=== PATIENT | female | born 1985 | race Caucasian/White ===

== ENCOUNTER 2018-02-11 22:02 | Emergency (ER) | payer MEDICAID ==
[~2018-02-11] VITALS: Ht 154.9 cm; Wt 63.0 kg
[2018-02-11 22:05] VITALS: BP 123/85
[2018-02-11] MEDS ORDERED: ondansetron 4mg rapidly disintigrating tab PO ONE (22:15)
[2018-02-11] MEDS ORDERED: HYDROcodone/acetaminophen 5mg/325mg tablet PO ONE (22:15)
[2018-02-11] MEDS ORDERED: ONDA4TAB9 PO (22:43)
[2018-02-11] MEDS ORDERED: HYDR-3965 PO (22:43)
== END 2018-02-11 23:32 | disposition home or self-care (01) ==
LOC: ER 22:03
DX: S93.401A Sprain of unspecified ligament of right ankle, initial encounter (principal); Z88.6 Allergy status to analgesic agent; Z79.899 Other long term (current) drug therapy; W01.0XXA Fall on same level from slipping, tripping and stumbling without subsequent striking against object, initial encounter; Y93.89 Activity, other specified; Y92.89 Other specified places as the place of occurrence of the external cause; Y99.8 Other external cause status
CPT/HCPCS: 73610; 73630; 99284; L4360